=== PATIENT | female | born 1935 | race Caucasian/White ===

== ENCOUNTER 2018-02-16 13:43 | Inpatient (IN) | payer MEDICARE, OTHER ==
[2018-02-16] MEDS ORDERED: Adacel (T-DAP) 0.5 ML VIAL ONE (14:39)
--- NOTE | 2018-02-16 14:51 | CT ---
NONCONTRAST CT HEAD: 02/16/2018 HISTORY: Mechanical fall from standing. Hematoma of the posterior scalp. COMPARISON: None available. FINDINGS: There is increased density seen layering along the tentorium, on the left, suggesting a small subdura l hemorrhage along the tentorium. No additional intraparenchymal or extraaxial hemorrhage is identif ied. There is no mass effect or midline shift. No acute infarction is seen. There is mild cerebral volume loss. The ventricular system is normal in size, shape, and position fo r the degree of sulcal atrophy. There is mild left parietal scalp soft tissue swelling. The underlying calvarial structures are inta ct, and no calvarial fracture is seen. The visualized paranasal sinuses and mastoid air cells are clear. Vascular calcification is seen in the carotid siphons. IMPRESSION: 1. Small amount of subdural hemorrhage with hemorrhage layering along the left tentorium. 2. Mild cerebral volume loss. 3. Small left parietal scalp hematoma without evidence of a calvarial fracture. The above findings were discussed with Dr. Goldsmith in the emergency department on 02/16/2018 at 1429 josefina rs. CODE CR POS: [facility]
--- NOTE | 2018-02-16 14:57 | CT ---
CT CERVICAL SPINE WITHOUT CONTRAST: HISTORY: Trauma. COMPARISON: CT cervical spine from 2010. FINDINGS: There is ACDF hardware at C4-C6. There is a bone island on the left side of the posterior elements o f C6. The mastoids are clear. No acute fracture or malalignment of the cervical spine. The odontoid proce ss is intact. The occipital condyles are intact. The thyroid is unremarkable. The lung apices are clear. IMPRESSION: No acute displaced fracture of the cervical spine. Please see brain CT for intracranial findings. POS: [facility]
[2018-02-16 15:28] LABS: #Eosinphils 0.1 thou/uL (0.0-0.7); #Lymphocytes 0.8 thou/uL (1.20-3.40); #Monocytes 0.5 thou/uL (0.11-0.59); #Neutrophils 3.5 thou/uL (1.40-6.50); %Basophils 0.8 % (0.0-1.0); %Eosinophils 1.5 % (0.0-10.0); %Lymphocytes 17.1 % (21.0-51.0); %Monocytes 9.5 % (0.0-10.0); %Neutrophils 71.2 % (42.0-75.0); Hemoglobin 15.3 g/dL (12.0-16.0); Mean Corpuscular HGB CONC 34.5 g/dL (32.0-36.0); Mean Corpuscular Hemoglobin 34.2 pg (27.0-31.0); Mean Corpuscular Volume 98.9 fL (78.0-98.0); Platelet Count 201 thou/uL (130-400); RBC Distribution Width 11.9 % (11.5-14.5); Red Blood Cell (RBC) Count 4.48 mill/uL (4.20-5.40); White Blood Cell (WBC) Count 4.9 thou/uL (4.8-10.8)
[2018-02-16 15:35] LABS: PTT 31.3 SEC (22.9-36.1); Prothrombin Time 13.3 SEC (12.0-14.7)
[2018-02-16] MEDS ORDERED: Ondansetron ODT 4 MG TAB PO PRN ×2 (15:47→20:50)
[2018-02-16] MEDS ORDERED: Dextrose 50% Abboject 50 ML SYRINGE SLOW IVP PRN ×2 (15:47→20:49)
[2018-02-16] MEDS ORDERED: Dextrose 5% in Water 1,000 ML IV PRN ×2 (15:47→20:49)
[2018-02-16] MEDS ORDERED: Ondansetron HCl/PF 4 MG/2 ML Vial IVP PRN ×2 (15:47→20:50)
[2018-02-16 15:52] LABS: ALT (SGPT) 16 U/L (8-55); AST (SGOT) 21 U/L (5-34); Albumin 4.1 g/dL (3.4-4.8); Alkaline Phosphatase 83 U/L (40-150); Anion Gap 12 mmol/L (10-20); BUN (Urea Nitrogen) 20 mg/dL (9.8-20.1); Bilirubin, Total 0.5 mg/dL (0.2-1.2); Calc. Creatinine Clearance 0 mL/min (70-130); Calcium 9.3 mg/dL (7.8-10.44); Carbon Dioxide 28 mmol/L (23-31); Chloride 104 mmol/L (98-107); Estimated GFR-MDRD 69; Globulin 2.9 g/dL (2.4-3.5); Glucose 114 mg/dL (83-110); Potassium 4.1 mmol/L (3.5-5.1); Sodium 140 mmol/L (136-145)
[2018-02-16] MEDS ORDERED: Acetaminophen 500 MG TAB PO PRN (15:57)
--- NOTE | 2018-02-16 16:37 | HP ---
DATE OF ADMISSION: 02/16/2018 HISTORY OF PRESENT ILLNESS: Ms. Cruz is an 82-year-old woman who presented to emergency de partment today following an unwitnessed ground level fall. The patient recalls coming back from [facility]. She was wearing a pair of house shoes and tripped over the edge of vinyl carpet. She struck her head, but denied any loss of consciousness. She immediately felt some tingling of upper extremities, which resolved minutes later. She yelled out to get help and 911 was called. The patient was brought by ground EMS to [facility] in [place], [place]. She had arrived hemodynamically stable. Her [place] coma scale upon arrival was noted at 15. She moved all extremities and answered questions appropriately. At the time of my evaluation, she denies any neck pain. She denies any chest or abdominal pain. She denies any dyspnea or syncope. PAST MEDICAL HISTORY: Pertinent for urinary bladder dysfunction, nephrolithiasis, neuropathic right leg pain, TIA 2-3 years ago. PAST SURGICAL HISTORY: Pertinent for abdominal hysterectomy, urinary bladder exploration, removal of the urinary bladder stone, laparoscopic cholecystectomy, cervical neck fusion. SOCIAL HISTORY: The patient currently lives independently. She admits to over [id number] cigarett e smoking history, but has not smoked since 1986. She admits occasional intake of ethanol in moderat e amount. PREHOSPITALIZATION MEDICATIONS: Include gabapentin 900 mg p.o. at bedtime, Plavix 75 mg p.o. daily, Enablex 15 mg p.o. daily. ALLERGIES: Patient denies any known drug allergies. FAMILY HISTORY: Noncontributory for this patient's age. REVIEW OF SYSTEMS: A 10-point review of systems is essentially unremarkable except for as stated in past medical history and chief complaint. PHYSICAL EXAMINATION: GENERAL: This reveals an 82-year-old pleasant and normally developed woman who is otherwise coherent and interactive and appears stated age. The patient is alert and oriented x3, appears to be in no a cute distress at the time of my evaluation. VITAL SIGNS: Includes blood pressure 151/81, pulse 88, respiratory rate is 18, temperature 98.1 degr ees Fahrenheit, oxygen saturation 97% on room air. HEENT: Examination reveals normocephalic and atraumatic. Pupils are equal, round, and reactive to l ight and accommodation. Extraocular muscles are intact bilaterally. She has no sclerae icterus pres ent. Oral mucosa is pink and moist. No lesions are noted. NECK: Supple. No palpable lymphadenopathy or thyromegaly present. Cervical spine immobilized in a C-collar for transport. During my examination, cervical neck was maintained in neutral position. Th e patient had no tenderness to palpation at midline. Following radiographic studies, I reevaluated t he patient's cervical spine. At this time, she has no cervical neck tenderness to palpation, active or passive range of motion. C-collar was discontinued. CHEST: Chest wall is stable. The patient has no gross deformities or step-offs present. HEART: Reveals regular rate and rhythm, no murmurs or gallops auscultated. LUNGS: Clear to auscultation bilaterally. Her breathing is regular and unlabored. ABDOMEN: Soft, nontender, nondistended. Liver and spleen are nonpalpable below costal margin. EXTREMITIES: Reveals 2+ radial and pedal pulses bilaterally. The patient has no ankle edema present . NEUROLOGIC: Cranial nerves II-XII grossly intact bilaterally. No focal deficits present. MUSCULOSKELETAL: Examination reveals 5/5 muscle strength in bilateral upper and lower extremities. The patient has no motor or sensory deficits identified. LABORATORY DATA: Pertinent laboratory findings today includes CBC with 4,900 white blood cells, hemo globin and hematocrit 15.3 and 44.4 respectively, platelet count is 201,000. PTT and INR are normal at 31.3 seconds and 1.0 respectively. Metabolic profile: Sodium 140, potassium is 4.1, chloride is 104, bicarbonate is 28, BUN 20, creatinine 0.80, glucose is 114. AST and ALT normal at 21 and 16 res pectively. IMAGING DATA: 1. I have personally reviewed the radiographic studies including a CT scan of the brain which is rem arkable for small left tentorial subdural hematoma with no mass effects. 2. CT scan of the cervical spine reveals no fractures or dislocation. IMPRESSION: 1. Status post ground level fall. 2. Acute traumatic brain injury with small left tentorial subdural hematoma without any neurological deficits. 3. Qualitative platelet dysfunction. PLAN: 1. Patient will be placed in observation with serial neurological and physical examinations. 2. Plavix and all chemical anticoagulants will be withheld. 3. We will initiate physical and occupational therapy. 4. We will repeat brain CT scan in the morning to evaluate the traumatic brain injury. 5. CT scan will be obtained earlier should serial neurological examinations so indicate. Above findings and plan have been discussed with the patient who indicates understanding of the infor mation given. I answered her questions. Neurosurgery will be consulted with regards to the traumati c brain injury.
[2018-02-16 18:10] VITALS: BMI 23.3
[2018-02-16] MEDS ORDERED: hydrALAZINE 20 MG/ML VIAL SLOW IVP PRN ×2 (19:39→20:51)
[2018-02-16] MEDS: Acetaminophen 500 MG TAB PO PRN (20:55)
--- NOTE | 2018-02-16 23:09 | CON ---
DATE OF CONSULTATION: 02/16/2018 Tye Jaeger PA-C dictating for Roney Goetz MD This is a 50-minute initial patient evaluation in which greater than 50% of the exam was spent counse ling and coordinating patient's care. Remainder of the exam was spent in review of patient's medical records and appropriate imaging studies. CHIEF COMPLAINT: Status post fall with left tentorial subdural hematoma. HISTORY OF PRESENT ILLNESS: Ms. Cruz is a pleasant 82-year-old female who looks much younger than he r stated age for the above complaints. Apparently, she fell backwards today and struck the back of h er head. She currently states that she has some tenderness into the left side of the scalp, but othe rwise denies headache, nausea or vomiting, blurred vision, or neck pain. She is on 81 mg aspirin and Plavix for a history of possible TIA in 2017. Her coagulation labs are within normal limits at this time. Review of patient's head CT shows a small left-sided tentorial subdural hematoma. Neurosurge ry was asked to consult regarding this. Her cervical spine CT is negative for fracture. PHYSICAL EXAMINATION: The patient is awake, alert, and appropriate. She has full strength in the bi lateral upper and bilateral lower extremities with intact sensation to light touch throughout. She h as no worrisome tenderness to palpation into the cervical spine. Her GCS currently is 15. She is ve ry pleasant and conversant. She has no pronator drift bilaterally. She has no dysmetria on index fi [id number] testing. IMPRESSION: Status post fall with left tentorial subdural hematoma. PLAN: I have discussed the patient's case and imaging with Dr. Goetz. At this time, the patient is neurologically stable and does not require neurosurgical intervention. We will plan to repeat a hea d CT in the morning. I would like her head off bed elevated at 30 degrees and neuro checks q.2 hours . Her systolic blood pressure should be less than 150. At this time, she can eat and she is, ministerio lopez, a fall risk. Please call with any changes in patient's neurologic status. Otherwise, she is stab le and our trauma colleagues have graciously admitted the patient.
--- NOTE | 2018-02-17 08:26 | PRG ---
DATE OF SERVICE: 02/17/2018 This is a 30 minute initial visit note in which 30 minutes were spent in reviewing the imaging, recor d, evaluation, examination of the patient, and formulation of a plan. Greater than 50% of the time w as spent in counseling. CHIEF COMPLAINT: Left tentorial acute subdural hematoma status post fall on aspirin and Plavix for h istory of transient ischemic attack. HISTORY OF PRESENT ILLNESS: I reviewed the notes of my colleague Tye Jaeger PA-C, and agree wit h its content. Ms. Cruz is a very pleasant 82-year-old woman who lives at [facility]. She states h er foot got caught on the vinyl floor yesterday and she fell. Head CT demonstrated a left tentorial acute subdural hematoma. Repeat this morning demonstrates a bit of enlargement of that clot with serena e layering as well in the left temporal convexity. There is no worrisome mass effect or midline shif t and neurologically the patient has no complaints. She has a history of C4-C6 ACDF with my colleagu e, Dr. Cevallos, in the past. CT of the cervical spine demonstrates no acute abnormality. She does appear to have subtle loosening of the C4 screws and likely a fracture of the right C6 screw; however , the patient has had no ill effects from this. She has no neck complaints and has done very well fo llowing her surgery. On exam she had GCS 15 and neurologically intact. IMPRESSION AND PLAN: Follow up will be in 2 weeks with a repeat head CT. I have asked that she abst ain from any type of antiplatelet or anticoagulant medications over the next 2 weeks. Should her hea d CT demonstrated resolution of the subdural hematoma in 2 weeks we will likely initiate 1 week of as pirin followed by restarting of her Plavix. If she has any cervical spine issues, we can always purs ue MRI, but at this point I do not think it necessary. The patient may: dismissed whenever she meet s criteria. DIAGNOSES: 1. Left acute subdural hematoma status post fall. 2. History of anterior cervical spine surgery with an excellent outcome.
[2018-02-17] MEDS ORDERED: TROSPIUM 20 MG TABLET PO SCH ×2 (09:00)
--- NOTE | 2018-02-17 09:00 | CT ---
PRELIMINARY REPORT/[facility]/EMERGENTY AFTER-HOURS PROCEDURE CT Head Without Intravenous Contrast EXAM DATE/TIME: Exam ordered 02/17/2018 4:24 AM CLINICAL HISTORY: 82 years old, female; Condition or disease; Other: Tbi; Patient HX: F/u tbi TECHNIQUE: Axial computed tomography images of the head/brain without intravenous contrast. COMPARISON: CT Brain WO Con 02/16/2018 2:18 PM FINDINGS: Brain: Redemonstrated is hyperdensity overlying the LEFT tentorium compatible with subdural hemorrhag e, stable from prior. No significant white matter disease. Ventricles: Normal. No ventriculomegaly. Bones/joints: Normal. No acute fracture. Soft tissues: There is stable posterior scalp hematoma. Sinuses: Unremarkable as visualized. No acute sinusitis. Mastoid air cells: Unremarkable as visualized. No mastoid effusion. IMPRESSION: Redemonstrated is hyperdensity overlying the LEFT tentorium compatible with subdural hemorrhage, stab le from prior. Thank you for allowing us to participate in the care of your patient. Dictated and Authenticated by: Ranulfo Freitas MD 02/17/2018 4:43 AM Central Time ([place] & [place]) FINAL REPORT CT BRAIN WITHOUT CONTRAST: Date: 02/17/18 FINDINGS/IMPRESSION: I agree with the preliminary report given by Rao. POS: [facility]
[2018-02-17] MEDS: Acetaminophen 500 MG TAB PO PRN (10:16)
[2018-02-17 12:20] VITALS: TEMP 98
--- NOTE | 2018-02-17 17:00 | DIS ---
DATE OF ADMISSION: 02/16/2018 DATE OF DISCHARGE: 02/17/2018 ADMITTING AND DISCHARGING PHYSICIAN: Dr. Bill Canada. SUPERVISOR ENROBING: Dr. Roney Goetz, Neurosurgery. ADMITTING DIAGNOSES: 1. Status post fall. 2. small left tentorial subdural hematoma. DISCHARGE DIAGNOSES: 1. Status post fall. 2. Small left tentorial subdural hematoma. HISTORY AND HOSPITAL COURSE: An 82-year-old woman fell from ground level position yesterday while am bulating. She was evaluated in the emergency room. CT scan of the cervical spine was unremarkable f or any fractures or dislocation. CT scan of the brain revealed a small left tentorial subdural hemat leny with no mass effects. Neurological examination reveals a woman with no neurological deficits present. The patient was on P lavix and aspirin at home. Based on this premise, she was placed on observation with serial neurolog ical examination. She has remained hemodynamically and neurologically stable through this admission. Vital signs have been stable. The patient has been afebrile. This morning, she is awake and alert with a [place] coma scale which has remained at 15. She ambulat es with minimum difficulty. She has been evaluated by Physical Therapy and following activities, was judged safe for discharge home. A repeat CT scan of the brain reveals stable small left tentorial s ubdural hematoma. Neurosurgery has recommended nonoperative interventions. The patient will be discharged home today with the following instructions: 1. She is to stay off aspirin and Plavix until she has been released by Neurosurgery. 2. She follows up with Neurosurgery in [address] weeks with repeat brain CT scan at that time. 3. She requires no further follow up from this Trauma Surgery standpoint except for as needed. 4. She may take Tylenol extra strength 1-2 p.o. q.6 hours p.r.n. headaches. 5. She may resume prescription by her primary care physician including Enablex 15 mg p.o. daily and gabapentin 900 mg p.o. at bedtime. She is to stay off aspirin and Plavix until she has been released by Neurosurgery. The above instructions given to the patient in presence of her nurse. She indicates understanding of information given. The patient has expressed gratitude for the care and nurture [facility].
[2018-02-17 19:13] VITALS: BP 128/60
== END 2018-02-17 13:24 | disposition home or self-care (01) | DRG 87 ==
LOC: ERS 13:43 → CCU 15:08 → ERS 17:53
PROVIDERS: ADMIT Surgery; ATTEND Surgery
DX: S06.5X0A Traumatic subdural hemorrhage without loss of consciousness, initial encounter (principal); W01.10XA Fall on same level from slipping, tripping and stumbling with subsequent striking against unspecified object, initial encounter; Y92.009 Unspecified place in unspecified non-institutional (private) residence as the place of occurrence of the external cause; Z86.73 Personal history of transient ischemic attack (TIA), and cerebral infarction without residual deficits; R40.2412 Glasgow coma scale score 13-15, at arrival to emergency department; Z87.891 Personal history of nicotine dependence; Z79.02 Long term (current) use of antithrombotics/antiplatelets
CPT/HCPCS: 70450; 72125; 80053; 85025; 85610; 85730; 90471; 90715; G0390; G8978-GP-CK; G8979-GP-CK; G8980-GP-CK

== ENCOUNTER 2018-03-07 12:32 | Outpatient (CLI) | payer MEDICARE, OTHER ==
--- NOTE | 2018-03-07 15:53 | CT ---
NONCONTRAST HEAD CT: Date: 03/07/18 COMPARISON: 02/17/18. HISTORY: Follow-up subdural hematoma. FINDINGS: The previously noted left tentorial subdural hematoma has resolved. There is no evidence of acute ext ra-axial or intraparenchymal hemorrhage. Stable appearance of the brain parenchyma. Stable appearance of the ventricular system. Cortical macario-white matter differentiation is preserved. Adequate aeratio n of the sinuses and mastoid air cells. Cavernous carotid atherosclerosis is noted. Calvarium is inta ct. IMPRESSION: Interval resolution of previously noted left tentorial subdural hematoma. POS: [facility]
== END 2018-03-07 12:33 | disposition home or self-care (01) ==
LOC: TBSIIMAG 12:32
PROVIDERS: ATTEND Surgery
DX: S06.5X9A Traumatic subdural hemorrhage with loss of consciousness of unspecified duration, initial encounter (principal)
CPT/HCPCS: 70450

== ENCOUNTER 2018-05-09 12:22 | Outpatient (CLI) | payer MEDICARE, OTHER ==
--- NOTE | 2018-05-09 18:40 | RAD ---
BIPHASIC ESOPHAGRAM: Date: 05/09/18 HISTORY: Laryngopharyngeal reflux. FINDINGS: The chief technologist film demonstrates postop changes of anterior spinal fusion with plate and screws in the low er cervical spine. The heart size is normal. The lungs are well expanded without focal areas of conso lidation, pneumothorax, or pleural effusions. There are degenerative changes with mild scoliosis of t he spine. Swallowing was grossly normal. There was unobstructed flow of contrast through the esophagus and into the stomach. Tertiary contractions are present. No obstructing mass, stricture, or diverticulum is s een. No spontaneous GE reflux was demonstrated during the exam or during the Valsalva maneuver. IMPRESSION: Presbyesophagus. POS: [facility]
== END 2018-05-09 12:23 | disposition home or self-care (01) ==
LOC: RAD 12:22
PROVIDERS: ATTEND Specialist
DX: K21.9 Gastro-esophageal reflux disease without esophagitis (principal); K22.8 Other specified diseases of esophagus
CPT/HCPCS: 74220

== ENCOUNTER 2020-11-01 13:59 | Outpatient (CLI) | payer MEDICARE, OTHER | END 2020-11-01 14:00 | disposition home or self-care (01) | LOC: BICMAMMO 13:59 | PROVIDERS: ATTEND Internal Medicine | DX: Z12.31 Encounter for screening mammogram for malignant neoplasm of breast (principal); Z91.89 Other specified personal risk factors, not elsewhere classified; Z80.3 Family history of malignant neoplasm of breast | CPT/HCPCS: 77063; 77067 ==

== ENCOUNTER 2021-11-03 14:37 | Outpatient (CLI) | payer MEDICARE, OTHER | END 2021-11-03 14:38 | disposition home or self-care (01) | LOC: BICMAMMO 14:37 | PROVIDERS: ATTEND Internal Medicine | DX: Z12.31 Encounter for screening mammogram for malignant neoplasm of breast (principal); Z91.89 Other specified personal risk factors, not elsewhere classified; Z80.3 Family history of malignant neoplasm of breast | CPT/HCPCS: 77063; 77067 ==

== ENCOUNTER 2022-08-11 14:29 | Outpatient (CLI) | payer MEDICARE, OTHER | END 2022-08-11 14:30 | disposition home or self-care (01) | LOC: BICMAMMO 14:29 | PROVIDERS: ATTEND Internal Medicine | DX: M85.89 Other specified disorders of bone density and structure, multiple sites (principal); M81.0 Age-related osteoporosis without current pathological fracture | CPT/HCPCS: 77080 ==

== ENCOUNTER 2023-11-23 13:13 | Outpatient (CLI) | payer MEDICARE, OTHER | END 2023-11-23 13:14 | disposition home or self-care (01) | LOC: BICMAMMO 13:13 | PROVIDERS: ATTEND Internal Medicine | DX: Z12.31 Encounter for screening mammogram for malignant neoplasm of breast (principal); Z80.3 Family history of malignant neoplasm of breast; Z91.89 Other specified personal risk factors, not elsewhere classified | CPT/HCPCS: 77063; 77067 ==